=== PATIENT | male | born 1985 | race Caucasian/White ===

== ENCOUNTER 2020-12-26 23:00 | Emergency (ER) | payer SELFPAY ==
[~2020-12-26] VITALS: Ht 160 cm; Wt 72.6 kg
[2020-12-26 23:04] VITALS: BP 184/90
--- NOTE | 2020-12-26 23:04 | NUR ---
TO LOBBY A/W BED VIA WHEELCHAIR
[2020-12-26] MEDS ORDERED: NACL 0.9% 1,000 ML IV SCH (23:50)
[2020-12-26] MEDS ORDERED: MORPHINE SULFATE 2 MG/ML SYR IVP ONE (23:50)
[2020-12-26] MEDS ORDERED: ONDANSETRON 4 MG/2 ML VIAL IVP ONE (23:50)
[2020-12-27 00:11] LABS: APPEARANCE,URINE CLEAR (CLEAR); BILIRUBIN,URINE NEGATIVE (NEGATIVE); BLOOD, URINE NEGATIVE (NEGATIVE); COLOR,URINE YELLOW (YELLOW); LEUKOCYTE ESTERASE ,URINE NEGATIVE (NEGATIVE); NITRITE, URINE NEGATIVE (NEGATIVE); UGLUCOSE TRACE (NEGATIVE)
[2020-12-27 00:12] LABS: BASOPHILS % (AUTO) 0.3 % (0.0-2.0); EOSINOPHILS % (AUTO) 0.4 % (0.0-4.0); HEMATOCRIT 40.8 % (36-52); HEMOGLOBIN 13.5 g/dL (12.0-18.0); LYMPHOCYTES # (AUTO) 0.8 K/uL (2.0-11.5); LYMPHOCYTES % (AUTO) 8.4 % (20.5-51.1); MEAN CORPUSCULAR HEMOGLOBIN 30 pg (27-31); MEAN CORPUSCULAR HGB CONC 33 g/dL (33-37); MEAN CORPUSCULAR VOLUME 90.8 fL (80-94); MONOCYTES # (AUTO) 0.4 K/uL (0.8-1.0); MONOCYTES % (AUTO) 4.6 % (1.7-9.3); NEUTROPHILS # (AUTO) 8.4 K/uL (1.8-7.7); NEUTROPHILS % (AUTO) 86.3 % (42.2-75.2); PLATELET COUNT (AUTO) 347 K/uL (140-450); RED BLOOD CELL COUNT(AUTO) 4.49 MIL/uL (4.20-6.10); RED CELL DISTRIBUTION WIDTH 13.9 % (11.6-13.7); WHITE BLOOD COUNT (AUTO) 9.7 K/uL (4.8-10.8)
[2020-12-27] MEDS ORDERED: KETAMINE 500 MG/5 ML VIAL ONE (00:23)
--- NOTE | 2020-12-27 00:23 | NUR ---
pulled ketamine on this pt on accident. not given to this pt.
[2020-12-27 00:33] LABS: ALBUMIN 3.6 g/dL (3.4-5.0); ANION GAP 7.7 (8-16); CARBON DIOXIDE 32.4 mmol/L (21-32); POTASSIUM 4.1 mmol/L (3.5-5.1); TOTAL BILIRUBIN 0.1 mg/dL (0.0-1.0)
[2020-12-27] MEDS ORDERED: MORPHINE SULFATE 2 MG/ML SYR ONE (00:54)
[2020-12-27] MEDS ORDERED: ONDANSETRON 4 MG/2 ML VIAL ONE (00:54)
--- NOTE | 2020-12-27 00:58 | NUR ---
PATIENT ELOPED FROM FACILITY. DISCHARGE INSTRUCTIONS NOT GIVEN TO PATIENT. DR. Stephenson NOTIFIED.
--- NOTE | 2020-12-29 00:23 | NUR ---
[facility] in [facility] - 12/29/20 at 0156 by [facility] pulled ketamine on this pt on accident.
== END 2020-12-27 00:58 | disposition left against medical advice (07) ==
LOC: MED 23:00
DX: R10.84 Generalized abdominal pain (principal)
CPT/HCPCS: 36415; 80053; 81003; 83690; 85025; 99284; J2270; J2405